=== PATIENT | male | born 1965 | race African-American/Black ===

== ENCOUNTER 2024-07-27 17:27 | Emergency (ER) | payer OTHER ==
[~2024-07-27] VITALS: Ht 175.3 cm; Wt 91.0 kg
[2024-07-27 17:33] VITALS: BP 185/102; PULSE 76; RESP 18; TEMP 36.6; O2SAT 100
== END 2024-07-27 22:56 | disposition left against medical advice (07) ==
LOC: ER 17:27
DX: R10.9 Unspecified abdominal pain (principal); E11.9 Type 2 diabetes mellitus without complications; I10 Essential (primary) hypertension; Z53.21 Procedure and treatment not carried out due to patient leaving prior to being seen by health care provider
CPT/HCPCS: 82962